=== PATIENT | female | born 1995 | race Caucasian/White ===

== ENCOUNTER 2018-06-10 12:33 | Emergency (ER) | payer OTHER ==
[2018-06-10 13:11] LABS: Pregnancy Test - Urine (BHCG) Negative (Negative); Pregu Control Background? CLEAR/WHITE (CLR/WHITE); Pregu Control Bar Appear? YES (CONTROL BAR)
--- NOTE | 2018-06-10 14:21 | ULT ---
PELVIC ULTRASOUND INCLUDING TRANSABDOMINAL AND TRANSVAGINAL AND VASCULAR DUPLEX WITH COLOR AND SPECTR AL DOPPLER IMAGING: HISTORY: Right-sided pain, IUD, history of cysts. FINDINGS: The uterus measures 7.1 x 3.7 x 5.4 cm. Endometrium 0.[address] Right ovary measures 5.1 x 2.9 x 3.9 cm and contains several cysts. In addition, there is a complica mireille cyst measuring 3.6 x 4.4 cm, which appears to contain some soft tissue density debris, probably h emorrhagic cyst; although, a followup study in 2-3 months is recommended to further assess this and e nsure that it resolves. The left ovary is normal. No abscess or abnormal fluid collections. IMPRESSION: Several right renal cysts including a complicated cyst which appears to contain some soft tissue dens ity, probably debris. Followup examination in 2-3 months is recommended to ensure that this resolves . Intrauterine device in place. Normal left ovary. POS: OFF
== END 2018-06-10 14:36 | disposition home or self-care (01) ==
LOC: MADERS 12:33
DX: N83.201 Unspecified ovarian cyst, right side (principal); F41.9 Anxiety disorder, unspecified
CPT/HCPCS: 76856; 81025

== ENCOUNTER 2020-07-16 13:54 | Emergency (ER) | payer OTHER ==
[2020-07-16 15:33] LABS: #Basophils 0.1 thou/uL (0.0-0.2); #Eosinphils 0.1 thou/uL (0.0-0.7); #Lymphocytes 1.2 thou/uL (1.20-3.40); #Monocytes 0.5 thou/uL (0.11-0.59); %Basophils 1.1 % (0.0-1.0); %Eosinophils 0.8 % (0.0-10.0); %Lymphocytes 17.7 % (21.0-51.0); %Monocytes 7.5 % (0.0-10.0); %Neutrophils 73.1 % (42.0-75.0); Hemoglobin 13.4 g/dL (12.0-16.0); MDiff Complete? YES; Macrocytosis SLIGHT = 6-15 cells (100X) (0-5/hpf); Mean Corpuscular HGB CONC 31.8 g/dL (32.0-36.0); Mean Corpuscular Hemoglobin 31.7 pg (27.0-31.0); Mean Corpuscular Volume 99.5 fL (78.0-98.0); Mean Platelet Volume 12.9 fL (7.4-10.4); Platelet Count 187 thou/uL (130-400); Platelet Morphology Comment Appears Adequate; Red Blood Cell (RBC) Count 4.24 mill/uL (4.20-5.40); White Blood Cell (WBC) Count 6.8 thou/uL (4.8-10.8)
[2020-07-16 15:42] LABS: ALT (SGPT) 42 U/L (8-55); AST (SGOT) 23 U/L (5-34); Alkaline Phosphatase 72 U/L (40-110); Anion Gap 13 mmol/L (10-20); BUN (Urea Nitrogen) 11 mg/dL (7.0-18.7); Bilirubin, Total 0.2 mg/dL (0.2-1.2); CK (CPK) 99 U/L (29-168); Calc. Creatinine Clearance 0 mL/min (70-130); Calcium 9.1 mg/dL (7.8-10.44); Carbon Dioxide 24 mmol/L (22-29); Chloride 108 mmol/L (98-107); Glucose 96 mg/dL (70-105); Sodium 141 mmol/L (136-145)
[2020-07-16 15:43] LABS: CKMB 1.2 ng/mL (0-6.6)
== END 2020-07-16 16:31 | disposition home or self-care (01) ==
LOC: MADERS 13:54
DX: M79.622 Pain in left upper arm (principal); F41.9 Anxiety disorder, unspecified; K58.9 Irritable bowel syndrome, unspecified
CPT/HCPCS: 71045; 80053; 82550; 82553; 84484; 85025; 93005; 94760

== ENCOUNTER 2021-05-19 17:31 | Emergency (ER) | payer OTHER, SELFPAY ==
[2021-05-19] MEDS ORDERED: Sodium Chloride 0.9% 100 ML BAG FS ONE (17:32)
[2021-05-19] MEDS ORDERED: Iopamidol 370 76% 125 ML VIAL FS ONE (17:32)
[2021-05-19] MEDS ORDERED: Aspirin Chewable 81 MG TAB ONE (18:27)
[2021-05-19] MEDS ORDERED: Nitroglycerin 0.4 MG TAB 1 EACH ONE (18:27)
[2021-05-19 19:10] LABS: #Basophils 0.1 thou/uL (0.0-0.2); #Eosinphils 0.2 thou/uL (0.0-0.7); #Monocytes 0.7 thou/uL (0.11-0.59); #Neutrophils 4.3 thou/uL (1.40-6.50); %Basophils 1.2 % (0.0-1.0); %Eosinophils 2.1 % (0.0-10.0); %Lymphocytes 28.3 % (21.0-51.0); %Monocytes 9.5 % (0.0-10.0); %Neutrophils 58.9 % (42.0-75.0); Hemoglobin 14.4 g/dL (12.0-16.0); Mean Corpuscular HGB CONC 34.6 g/dL (32.0-36.0); Mean Corpuscular Hemoglobin 32.7 pg (27.0-31.0); Mean Corpuscular Volume 94.4 fL (78.0-98.0); Mean Platelet Volume 10.1 fL (7.4-10.4); Platelet Count 192 thou/uL (130-400); White Blood Cell (WBC) Count 7.2 thou/uL (4.8-10.8)
[2021-05-19 19:33] LABS: ALT (SGPT) 43 U/L (8-55); AST (SGOT) 21 U/L (5-34); Albumin 4.1 g/dL (3.5-5.0); Alkaline Phosphatase 73 U/L (40-110); Anion Gap 14 mmol/L (10-20); BUN (Urea Nitrogen) 15 mg/dL (7.0-18.7); Bilirubin, Total 0.2 mg/dL (0.2-1.2); Calc. Creatinine Clearance 0 mL/min (70-130); Calcium 9.2 mg/dL (7.8-10.44); Carbon Dioxide 22 mmol/L (22-29); Chloride 109 mmol/L (98-107); Globulin 2.8 g/dL (2.4-3.5); Glucose 100 mg/dL (70-105); Protein, Total 6.9 g/dL (6.0-8.3); Sodium 141 mmol/L (136-145)
[2021-05-19 19:42] LABS: BHCG - Serum Negative (NEGATIVE); Pregs Control Background? CLEAR/WHITE (CLR/WHITE); Pregs Control Bar Appear? YES (CONTROL BAR)
[2021-05-19 23:50] LABS: SARS-CoV-2 NAA Rapid Test Not Detected (NotDetected)
== END 2021-05-20 00:50 | disposition short-term general hospital (02) ==
LOC: MADERS 17:31
DX: G45.9 Transient cerebral ischemic attack, unspecified (principal); R07.89 Other chest pain; I10 Essential (primary) hypertension; E78.2 Mixed hyperlipidemia; F17.210 Nicotine dependence, cigarettes, uncomplicated; Z79.899 Other long term (current) drug therapy; Z20.822 Contact with and (suspected) exposure to COVID-19
CPT/HCPCS: 70450; 71045; 71275; 74174; 80053; 84484; 84703; 85025; 85379; 93005; 94760; Q9967; U0002

== ENCOUNTER 2021-11-01 19:03 | Emergency (ER) | payer SELFPAY ==
[2021-11-01 19:31] LABS: Bilirubin Small (Negative); Blood, Urine Negative (Negative); Glucose, Urine (Dipstick) Negative (Negative); Ketone, Urine Trace mg/dL (Negative); Leukocyte Negative (Negative); Nitrite Negative (Negative); Protein, Urine (Dipstick) 30 mg/dL (Neg-Trace); Urobilinogen 0.2 mg/dL (Less than 2); pH, Urine 8.5 (5.0-9.0)
[2021-11-01 19:33] LABS: Clarity Hazy (Clear)
[2021-11-01 19:38] LABS: Pregnancy Test - Urine (BHCG) Negative (Negative); Pregu Control Background? CLEAR/WHITE (CLR/WHITE); Pregu Control Bar Appear? YES (CONTROL BAR)
[2021-11-01 19:39] LABS: Bacteria/HPF 1+ HPF (None Seen); RBC/HPF 0-3 HPF (0-3); WBC/HPF 0-3 HPF (0-3)
== END 2021-11-01 19:48 | disposition home or self-care (01) ==
LOC: MADERS 19:03
DX: R10.30 Lower abdominal pain, unspecified (principal); I10 Essential (primary) hypertension; E78.2 Mixed hyperlipidemia; K58.9 Irritable bowel syndrome, unspecified; N83.201 Unspecified ovarian cyst, right side; F17.210 Nicotine dependence, cigarettes, uncomplicated; Z79.899 Other long term (current) drug therapy
CPT/HCPCS: 81003; 81015; 81025; 99284

== ENCOUNTER 2023-01-07 13:00 | Emergency (ER) | payer SELFPAY ==
[~2023-01-07 13:00] MED LIST: Iopamidol 370 76% 100 ML VIAL ONE
[2023-01-07 14:07] LABS: #Basophils 0.1 thou/uL (0.0-0.2); #Eosinphils 0.3 thou/uL (0.0-0.7); #Lymphocytes 1.8 thou/uL (1.20-3.40); #Monocytes 0.5 thou/uL (0.11-0.59); #Neutrophils 4.6 thou/uL (1.40-6.50); %Eosinophils 4.7 % (0.0-10.0); %Lymphocytes 24.6 % (21.0-51.0); %Monocytes 7.4 % (0.0-10.0); %Neutrophils 62.4 % (42.0-75.0); Hematocrit 40.6 % (36.0-47.0); Hemoglobin 13.8 g/dL (12.0-16.0); Mean Corpuscular Hemoglobin 33.1 pg (27.0-31.0); Mean Corpuscular Volume 97.4 fl (78.0-98.0); Mean Platelet Volume 14.9 fL (7.4-10.4); Platelet Adequacy Comment Appears Decreased; Platelet Count 124 10x3/uL (130-400); RBC Distribution Width 11.3 % (11.5-14.5); Red Blood Cell (RBC) Count 4.17 mill/uL (4.20-5.40); White Blood Cell (WBC) Count 7.4 10x3/uL (4.8-10.8)
[2023-01-07 14:08] LABS: BHCG - Serum Negative (NEGATIVE); Pregs Control Background? CLEAR/WHITE (CLR/WHITE); Pregs Control Bar Appear? YES (CONTROL BAR)
[2023-01-07 14:09] LABS: Anion Gap 13 mmol/L (10-20); BUN (Urea Nitrogen) 9 mg/dL (7.0-18.7); Calc. Creatinine Clearance 0 mL/min (70-130); Carbon Dioxide 21 mmol/L (22-29); Chloride 107 mmol/L (98-107); Estimated GFR 99; Glucose 83 mg/dL (70-105); Potassium 3.8 mmol/L (3.5-5.1); Sodium 137 mmol/L (136-145)
== END 2023-01-07 15:30 | disposition left against medical advice (07) ==
LOC: MADERS 13:00
DX: R13.10 Dysphagia, unspecified (principal); I10 Essential (primary) hypertension; F17.210 Nicotine dependence, cigarettes, uncomplicated; K58.9 Irritable bowel syndrome, unspecified
CPT/HCPCS: 70491; 80048; 84703; 85025; Q9967

== ENCOUNTER 2023-08-12 05:29 | Emergency (ER) | payer OTHER, SELFPAY | END 2023-08-12 06:05 | disposition home or self-care (01) | LOC: MADERS 05:29 | DX: L25.9 Unspecified contact dermatitis, unspecified cause (principal); I10 Essential (primary) hypertension; Z87.891 Personal history of nicotine dependence | CPT/HCPCS: 99283 ==

== ENCOUNTER 2024-12-28 17:35 | Emergency (ER) | payer MEDICAID, OTHER ==
[2024-12-28 18:20] LABS: Glucose, Urine (Dipstick) Negative (Negative); Leukocyte Negative (Negative); Protein, Urine (Dipstick) Negative (Neg-Trace); Specific Gravity, Urine Greater/Equal 1.030 (1.005-1.030)
[2024-12-28 18:20] LABS: INR-International Normal Ratio 1.0; Prothrombin Time 13.3 sec (12.0-14.7)
[2024-12-28 18:21] LABS: Pregnancy Test - Urine (BHCG) Negative (Negative); Pregu Control Background? CLEAR/WHITE (CLR/WHITE); Pregu Control Bar Appear? YES (CONTROL BAR)
[2024-12-28 18:21] LABS: PTT 32.5 sec (22.9-36.1)
[2024-12-28 18:22] LABS: #Basophils 0.1 thou/uL (0.0-0.2); #Eosinophils 0.1 thou/uL (0.0-0.7); #Lymphocytes 2.3 thou/uL (1.20-3.40); #Monocytes 0.5 thou/uL (0.11-0.59); #Neutrophils 4.2 thou/uL (1.40-6.50); %Basophils 1.7 % (0.0-1.0); %Eosinophils 2.0 % (0.0-10.0); %Lymphocytes 31.3 % (21.0-51.0); %Monocytes 6.7 % (0.0-10.0); %Neutrophils 58.4 % (42.0-75.0); Hematocrit 40.6 % (36.0-47.0); Hemoglobin 13.4 g/dL (12.0-16.0); Mean Corpuscular Hemoglobin 31.0 pg (27.0-31.0); Mean Corpuscular Volume 94.2 fl (78.0-98.0); Platelet Count 163 10x3/uL (130-400); Red Blood Cell (RBC) Count 4.31 mill/uL (4.20-5.40); White Blood Cell (WBC) Count 7.2 10x3/uL (4.8-10.8)
[2024-12-28 18:29] LABS: ALT (SGPT) 17 U/L (Less than 34); AST (SGOT) 19 U/L (11-34); Albumin 4.5 g/dL (3.1-4.5); Alkaline Phosphatase 54 U/L (40-110); Anion Gap 15 mmol/L (10-20); BUN (Urea Nitrogen) 15 mg/dL (7.0-18.7); Bilirubin, Total 0.4 mg/dL (0.3-1.2); Calc. Creatinine Clearance 0 mL/min (70-130); Calcium 9.1 mg/dL (7.8-10.44); Carbon Dioxide 24 mmol/L (22-29); Chloride 106 mmol/L (98-107); Globulin 3.1 g/dL (2.4-3.5); Glucose 120 mg/dL (70-105); Lipase 31 U/L (8-78); Magnesium 1.9 mg/dL (1.6-2.6); Potassium 3.7 mmol/L (3.5-5.1); Sodium 141 mmol/L (136-145)
[2024-12-28 18:29] LABS: Bacteria/HPF Rare-Few HPF (None Seen); CAUTI Indications for Culture Dysuria,urgency,freq; RBC/HPF None Seen HPF (0-3)
[2024-12-28 18:30] LABS: Mucous/LPF 2+ LPF (<2+); Urine Culture Reflex No No
[2024-12-28 18:31] LABS: Troponin I Less than 0.010 ng/mL (< 0.028)
[2024-12-28 18:32] LABS: Giant Platelets SLIGHT HPF (0-5); Platelet Adequacy Comment Appears Adequate
== END 2024-12-28 19:17 | disposition home or self-care (01) ==
LOC: MADERS 17:35
DX: N20.1 Calculus of ureter (principal); R42 Dizziness and giddiness; Z87.891 Personal history of nicotine dependence
CPT/HCPCS: 71045; 74176; 80053; 81001; 81025; 83690; 83735; 83880; 84484; 85025; 85610; 85730; J7030